=== PATIENT | male | born 1955 | race Caucasian/White ===

== ENCOUNTER 2017-07-06 10:52 | Emergency (ER) | payer MEDICARE ==
[2017-07-06 11:27] LABS: BASOPHILS 0.1 % (0-2); EOSINOPHILS 2.4 % (0-7); HEMOGLOBIN 16.7 g/dL (13.5-17.5); IMMATURE GRANULOCYTES 0.7 % (0-5); LYMPHOCYTES 7.6 % (15-50); MCHC 32.1 g/dL (31.0-37.0); MCV 84.1 fL (80.0-100.0); MEAN PLATELET VOLUME 12.2 fL (7.4-10.4); MONOCYTES 9.7 % (2-11); NEUTROPHILS 79.5 % (40-80); PLATELET COUNT 210 10x3/uL (130-400); RBC 6.18 10x6/uL (4.20-6.10); RDW 14.6 % (11.5-14.5); WBC 13.2 10x3/uL (4.8-10.8)
[2017-07-06 11:40] LABS: ANION GAP 14.1 mmol/L (8-16); BILIRUBIN - TOTAL 0.5 mg/dL (0.2-1.3); CALCIUM 9.4 mg/dL (8.5-10.1); CREATININE - SERUM 1.3 mg/dL (0.6-1.3); POTASSIUM - SERUM 4.1 mmol/L (3.5-5.1); PROTEIN - SERUM 7.2 g/dL (6.4-8.2)
== END 2017-07-06 13:56 | disposition home or self-care (01) ==
LOC: D.ER 10:52
PROVIDERS: Nurse Practitioner Family
DX: R06.00 Dyspnea, unspecified (principal)